=== PATIENT | male | born 1960 | race Caucasian/White ===

== ENCOUNTER 2021-09-28 07:39 | Emergency (ER) | payer OTHER, SELFPAY ==
[2021-09-28 07:40] VITALS: BP 149/92; PULSE 64; RESP 14; TEMP 36.2; O2SAT 99; BMI 25.6
--- NOTE | 2021-09-28 08:10 | EDS_ITS ---
HPI History of Present Illness Chief Complaint: Flank Pain Informant: patient Pain Onset: Today Context: Sudden Onset Timing: Continuous Worsened by: Nothing Relieved by: Nothing Urinary Symptoms Genitourinary Symptoms: Burning and Dysuria Narrative Narrative: Patient presents with left flank pain that began today. Patient states it began rather suddenly at 0400 this morning. Patient states the pain feels similar to prior kidney stones. Patient states it is localized to the left flank. Patient admits to some nausea and vomiting. Patient admits to some dysuria but denies any hematuria. Patient denies any fevers or chills. Patient states nothing makes his pain better and nothing makes it worse. Patient describes his pain as sharp. [facility] Medical History (Updated 09/28/21 @ 09:[address] Austin Chicas DO) HLD (hyperlipidemia) HTN (hypertension) Kidney stone Home Medications tamsulosin 0.4 mg capsule 0.4 mg PO DAILY 14 days 03/17/13 [Rx Last Taken Unknown] Benazepril Hcl [Lotensin] 10 mg PO QHS 04/13/13 [History Last Taken Unknown] amlodipine 5 mg tablet 5 mg PO QHS 04/13/13 [History Last Taken Unknown] pravastatin 40 mg tablet 40 mg PO QHS 04/13/13 [History Last Taken Unknown] hydrocodone-acetaminophen 5-325mg 5mg-325mg 1 tab PO Q6H PRN PRN Pain 3 days #10 TABLETS 09/28/21 [Rx Last Taken Unknown] Allergy/AdvReac Type Severity Reaction Status Date / Time No Known Allergies Allergy Verified 09/28/21 07:40 Surgical History (Updated 09/28/21 @ 08:[address] Austin Chicas DO) History of herniorrhaphy Social History Smoking Status: Never smoker ROS ROS ED Constitutional Constitutional ED: Denies chills or fever(s) Eyes Eyes: Denies blurry vision or change in vision ENT ENT ED: Denies rhinorrhea or sore throat Cardiovascular Cardiovascular: Denies chest pain or palpitations Respiratory/Chest Respiratory/Chest: Denies cough or dyspnea Gastrointestinal Gastrointestinal: Reports nausea and vomiting Genitourinary Genitourinary ED: Reports dysuria; Denies hematuria Musculoskeletal Musculoskeletal: Reports back pain; Denies neck pain Integumentary Denies abscess or rash Neurologic Neurologic: Denies headache(s) or weakness Allergic/Immunologic Allergic/Immunologic ED: Denies mouth swelling or urticaria EXAM Physical Exam Const Vital Signs: 09/28/21 07:40 Temperature 97.2 F L Temperature Source Temporal Pulse Rate 64 Respiratory Rate 14 Blood Pressure 149/92 H Blood Pressure Mean 111 Pulse Ox 99 Oxygen Delivery Method Room Air Positive well nourished and well developed General Appearance ED: well developed HEENT Reports moist mucous membranes Neck supple and no JVD Resp normal respiratory effort and clear to auscultation bilaterally Cardio regular rate, regular rhythm and no murmurs GI normal to inspection, nondistended, normoactive bowel sounds and non-tender Palpation: soft Bladder / Kidney Exam: CVA tenderness left Back/Spine General Back: CVA tenderness left Extremity normal to inspection General Extremety ED: Negative for edema or tenderness General Extremity: Negative for edema Neuro oriented x3, CN's II-XII intact bilaterally and no sensory deficits noted Sensorium / Orientation: alert Motor Exam: strength 5/5 throughout Psych mental status grossly normal Skin no rashes or lesions noted MDM MDM MDM Narrative Medical decision making narrative: Patient was given IV fluids, morphine, Zofran, and Toradol. Urinalysis shows 25-50 red blood cells with occult blood of 250. There is no evidence of urinary tract infection. CT scan of the abdomen pelvis was obtained. There is a 3 mm calculus at the left ureterovesicular junction causing hydronephrosis and hyd roureter. There are also bilateral intrarenal calculi that are nonobstructing. There is a right renal cyst. This was interpreted by the radiologist and reviewed by myself. Patient was advised of his findings. Patient was given prescription for [place]. Patient was instructed to drink plenty of fluids. Patient was instructed to follow-up with his primary care physician in 5 to 7 days. Patient was also given referral for urology. Patient understood and was agreeable with the plan. All questions were answered. Lab Data Attestation: I reviewed the patient's lab results. Labs: Laboratory Results - last 24 hr 09/28/21 08:18 Urine Color Straw Urine Clarity Sl. Cloudy Urine pH 6.5 Ur Specific [place] 1.010 Urine Protein 30 H Urine Glucose (UA) Normal Urine Ketones Negative Urine Occult Blood 250 H Urine Nitrite Negative Urine Bilirubin Negative Urine Urobilinogen Normal Ur Leukocyte Esterase Negative Urine RBC 25-50 SEEN Urine WBC 0 SEEN Ur Squamous Epith Cells 0 SEEN Urine Bacteria 0 SEEN Urine Mucus 0 SEEN Radiography Diagnostic Testing: Clinical Impression(s) from Imaging Studies Abdomen/Pelvis CT 09/28/21 08:13 IMPRESSION: 3 mm calculus at the left ureterovesical junction causing left hydronephrosis and hydroureter. Nonobstructive bilateral intrarenal calculi. Right renal cyst. Prostatic enlargement with indentation at the bladder base. Electronically Signed: Johnnie Leonard MD at 8:57 EDT , Discharge Plan Triage Chief Complaint: Flank Pain ED Provider: Austin Chicas Dx/Rx/DC Orders Clinical Impression: Calculus of distal left ureter, Hydronephrosis of left kidney Instructions: ED Kidney Stone w/ Colic Prescriptions: New hydrocodone-acetaminophen [hydrocodone-acetaminophen] 5-325 mg tablet 1 tab PO Q6H PRN PRN (Reason: Pain) 3 Days Qty: 10 0RF No Action tamsulosin 0.4 MG capsule 0.4 mg PO DAILY 14 Days 0RF pravastatin 40 MG tablet 40 mg PO QHS amlodipine 5 MG tablet 5 mg PO QHS Benazepril Hcl [Lotensin] 5 MG tablet 10 mg PO QHS Primary Care Provider: Dinesh Goins Referrals: Gato Velasco MD [STAFF PHYSICIAN] - 3-5 Days Dinesh Goins MD [Primary Care Provider] - 5-7 Days Disposition Disposition: Home, Self Care
--- NOTE | 2021-09-28 08:13 | CT_ITS ---
STUDY: CT ABDOMEN AND PELVIS WITHOUT CONTRAST REASON FOR EXAM: Male, 61 years old. Left flank pain. History of kidney stones and prior lithotripsy. RADIATION DOSAGE (If Supplied By Facility): CTDIvol = ( 6.56 ) mGy, DLP = ( 367.15 ) mGycm TECHNIQUE: Transaxial images were obtained from the dome of the diaphragm to the symphysis pubis without oral contrast, and without intravenous contrast. Sagittal and coronal images were reconstructed. Individualized dose optimization techniques were used for this CT. COMPARISON: Comparison is made with prior study dated 01/07/2016. FINDINGS: Scattered calcified granulomas in both lower lobes. The visualized portions of the heart are within normal limits. Normal liver. Normal gallbladder and extrahepatic biliary system. There are multiple benign calcified granulomata of the spleen. Normal pancreas. Normal bilateral adrenal glands. There is a 2.1 cm x 1.9 cm cyst in the anterior lateral aspect of the right kidney. 2 mm nonobstructive calculus in the lower pole calyx of the right kidney. There are multiple nonobstructive small left intrarenal calculi. The largest measures 5 mm. Mild degree of left hydronephrosis and hydroureter with left perinephric and periureteric stranding due to a 3 mm calculus at the left ureterovesical junction. There is a moderate sized hiatal hernia. Normal small intestine. Normal colon. The appendix is visualized and appears normal. Normal abdominal aorta. Normal inferior vena cava. Normal retroperitoneum. Normal urinary bladder. There are prostatic calcifications. The prostate is enlarged. It measures 5.8 cm x 4.5 cm. This causes indentation of the bladder base. There is a small umbilical hernia containing fat. Small bilateral inguinal hernias containing fat more prominent on the left side. Normal osseous structures. CT/Abdomen/Pelvis without Cont IMPRESSION: 3 mm calculus at the left ureterovesical junction causing left hydronephrosis and hydroureter. Nonobstructive bilateral intrarenal calculi. Right renal cyst. Prostatic enlargement with indentation at the bladder base. Electronically Signed: Johnnie Leonard MD at 8:57 EDT ,
[2021-09-28] MEDS: 0.9% Normal Saline 1,000 ML 1000 ML IV (08:19)
[2021-09-28] MEDS: Ondansetron 4 MG/2 ML Vial IV (08:19)
[2021-09-28] MEDS: Ketorolac 30 MG/ML Syringe IV (08:19)
[2021-09-28] MEDS: Morphine 4 MG/ML Syringe IV (08:19)
[2021-09-28 08:24] LABS: Bacteria 0 SEEN /hpf (None Seen); Mucous, Urine 0 SEEN /hpf (<or=2+); Squamous Epithelial Cells - UA 0 SEEN /hpf (0-5); White Blood Cells 0 SEEN /hpf (0-5)
[2021-09-28 08:25] LABS: Color, Urine Straw (Yellow); Glucose, Dipstick Normal (Normal); Ketone-Dipstick Negative (Negative); Leukocyte Esterase-Dipstick Negative /ul (Negative); Nitrite-Dipstick Negative (Negative); Occult Blood-Urine 250 /ul (Negative); Protein-Dipstick 30 mg/dl (Negative); Urine Bilirubin Dipstick Negative (Negative); Urine Clarity Sl. Cloudy (Clear); Urine Urobilinogen Normal (Normal); Urine pH 6.5 (5.0 - 8.0)
[2021-09-28 08:34] LABS: Red Blood Cells-Urine 25-50 SEEN /hpf (0-5)
[2021-09-28 09:17] VITALS: BP 124/85; PULSE 72; RESP 16; O2SAT 95
== END 2021-09-28 09:24 | disposition home or self-care (01) ==
PROVIDERS: Emergency Provider Emergency Medicine; PCP Family Medicine; Visit Provider Emergency Medicine
DX: N13.2 Hydronephrosis with renal and ureteral calculous obstruction (principal); N13.4 Hydroureter; N28.1 Cyst of kidney, acquired; I10 Essential (primary) hypertension; E78.5 Hyperlipidemia, unspecified; Z79.899 Other long term (current) drug therapy; Z87.442 Personal history of urinary calculi
CPT/HCPCS: 74176; 81001; 96361; 96374; 96375; 99283; J7030; A4216; J2405